=== PATIENT | male | born 1950 | race Caucasian/White ===

== ENCOUNTER → 2016-12-04 | Outpatient (CLI) | payer OTHER ==
[2016-12-04 06:43] LABS: Urine RBC None Seen /hpf (0 - 3)
[2016-12-04 07:01] LABS: Basophils # (auto) 0 uL; Basophils % (auto) 0.3 % (0.0-2.0); Eosinophils # (auto) 0.3 uL; Hematocrit 46.6 % (41.0-53.0); Hemoglobin 15.5 g/dL (13.5-17.5); Lymphocytes # (auto) 1.6 uL; Lymphocytes % (auto) 25.4 % (10.0-50.0); Mean Corpuscular Hemoglobin 29.1 pg (28.0-32.0); Mean Corpuscular Hgb Conc. 33.3 g/dL (32.0-36.0); Mean Corpuscular Volume 87.3 fL (80.0-100.0); Mean Platelet Volume 8.2 fL (7.4-10.4); Monocytes # (auto) 0.4 uL; Monocytes % (auto) 6.6 % (0.0-12.0); Neutrophils % (auto) 63.7 % (37.0-80.0); Platelet Count (auto) 221 10^3/uL (140-450); Red Cell Distribution Width 13.6 % (11.6-16.0); White Blood Cell 6.2 10^3/uL (4.4-10.8)
[2016-12-04 07:10] LABS: Urine Bilirubin Negative (Negative); Urine Blood Negative /uL (Negative); Urine Color Yellow (Yellow); Urine Glucose Normal (Normal); Urine Ketone Negative (Negative); Urine Nitrite Negative (Negative); Urine Urobilinogen Normal (Negative)
[2016-12-04 07:30] LABS: BUN/Creatinine Ratio 23.2; Bilirubin, Total 0.6 mg/dL (0.2-1.0); Calcium 8.9 mg/dL (8.5-10.1); Potassium 4.3 mmol/L (3.5-5.1); Total Protein 7.2 g/dL (6.4-8.2)
== END | disposition home or self-care (01) ==
LOC: LAB 06:36
PROVIDERS: ATTEND Family Medicine
DX: E11.9 Type 2 diabetes mellitus without complications (principal)
CPT/HCPCS: 36415; 80053; 80061; 81001; 82043; 82306; 83036; 85025

== ENCOUNTER → 2017-05-28 | Outpatient (CLI) | payer OTHER | END | disposition home or self-care (01) | LOC: LAB 06:35 | PROVIDERS: ATTEND Family Medicine | DX: E11.9 Type 2 diabetes mellitus without complications (principal) | CPT/HCPCS: 36415; 83036 ==

== ENCOUNTER → 2017-12-07 | Outpatient (CLI) | payer BC ==
[2017-12-07 08:49] LABS: Basophils # (auto) 0 uL; Basophils % (auto) 0.8 % (0.0-2.0); Eosinophils # (auto) 0.3 uL; Eosinophils % (auto) 4.8 % (0.0-7.0); Hematocrit 45.5 % (41.0-53.0); Hemoglobin 15.2 g/dL (13.5-17.5); Lymphocytes # (auto) 1.5 uL; Lymphocytes % (auto) 27.9 % (10.0-50.0); Mean Corpuscular Hemoglobin 29.1 pg (28.0-32.0); Mean Corpuscular Hgb Conc. 33.4 g/dL (32.0-36.0); Mean Corpuscular Volume 87.1 fL (80.0-100.0); Monocytes # (auto) 0.4 uL; Monocytes % (auto) 7.2 % (0.0-12.0); Neutrophils # (auto) 3.3 uL; Neutrophils % (auto) 59.3 % (37.0-80.0); Nucleated Red Blood Cells % 0.3 %; Platelet Count (auto) 181 10^3/uL (140-450); Red Blood Cells 5.22 10^6/uL (4.5-5.90); Red Cell Distribution Width 13.9 % (11.8-14.3); White Blood Cell 5.5 10^3/uL (4.4-10.8)
[2017-12-07 09:07] LABS: Urine Bacteria NONE SEEN /hpf (None Seen); Urine Blood Negative /uL (Negative); Urine Specific Gravity 1.024 (1.001-1.035); Urine WBC 1 /hpf (0 - 3)
[2017-12-07 09:37] LABS: BUN/Creatinine Ratio 18.1; Bilirubin, Total 0.7 mg/dL (0.2-1.0)
== END | disposition home or self-care (01) ==
LOC: LAB 08:10
PROVIDERS: ATTEND Family Medicine
DX: E11.8 Type 2 diabetes mellitus with unspecified complications (principal); E78.5 Hyperlipidemia, unspecified
CPT/HCPCS: 36415; 80053; 80061; 81001; 82043; 83036; 84153; 84154; 85025

== ENCOUNTER → 2018-05-16 | Day surgery (SDC) | payer BC, MEDICARE ==
[2018-05-14 09:54] LABS: Basophils # (auto) 0 uL; Basophils % (auto) 0.8 % (0.0-2.0); Eosinophils # (auto) 0.3 uL; Eosinophils % (auto) 4.7 % (0.0-7.0); Hematocrit 44.9 % (41.0-53.0); Hemoglobin 15.4 g/dL (13.5-17.5); Lymphocytes # (auto) 1.3 uL; Lymphocytes % (auto) 23.1 % (10.0-50.0); Mean Corpuscular Hemoglobin 29.8 pg (28.0-32.0); Mean Corpuscular Hgb Conc. 34.4 g/dL (32.0-36.0); Mean Corpuscular Volume 86.6 fL (80.0-100.0); Monocytes # (auto) 0.5 uL; Monocytes % (auto) 8.7 % (0.0-12.0); Neutrophils # (auto) 3.4 uL; Neutrophils % (auto) 62.7 % (37.0-80.0); Nucleated Red Blood Cells % 0.1 %; Platelet Count (auto) 186 10^3/uL (140-450); Red Blood Cells 5.19 10^6/uL (4.5-5.90); Red Cell Distribution Width 13.8 % (11.8-14.3); White Blood Cell 5.5 10^3/uL (4.4-10.8)
[2018-05-14 10:27] LABS: Urine Bacteria NONE SEEN /hpf (None Seen); Urine Blood Negative /uL (Negative); Urine WBC 1 /hpf (0 - 3)
[2018-05-14 10:34] LABS: Albumin 3.9 g/dL (3.4-5.0); BUN/Creatinine Ratio 16.4; Calcium 8.5 mg/dL (8.5-10.1); Potassium 4.1 mmol/L (3.5-5.1)
[2018-05-14 10:36] LABS: Bilirubin, Total 0.8 mg/dL (0.2-1.0); Total Protein 6.9 g/dL (6.4-8.2)
[2018-05-14 11:05] LABS: INR 1.02 (0.9-1.15); Prothrombin Time 10.9 sec (9.27-12.13)
[~2018-05-16] VITALS: Ht 170.2 cm; Wt 81.6 kg
[~2018-05-16] MED LIST: CIPROFLOXACIN 400MG/200ML 200 ML IV ONE; MIDAZOLAM HCL 1MG/1ML-2 ML VIAL ONE; PROPOFOL 10 MG/ML 20 ML IV ONE; fentaNYL CITRATE 100 MCG/2 ML VL ONE
[2018-05-16 08:20] VITALS: BP 110/70
== END | disposition home or self-care (01) ==
LOC: SUR 05:39
PROVIDERS: ATTEND Urology
DX: D29.1 Benign neoplasm of prostate (principal); R97.20 Elevated prostate specific antigen [PSA]; I34.1 Nonrheumatic mitral (valve) prolapse; E78.00 Pure hypercholesterolemia, unspecified; E11.9 Type 2 diabetes mellitus without complications; Z79.82 Long term (current) use of aspirin; Z87.891 Personal history of nicotine dependence; Z98.890 Other specified postprocedural states
CPT/HCPCS: 36415; 55706; 80053; 81001; 82962; 85025; 85610; 85730; 88305; 88342; J0744; J2250; J2704; J3010

== ENCOUNTER → 2018-09-05 | Outpatient (CLI) | payer BC, MEDICARE ==
[2018-09-05 07:26] LABS: Urine WBC None Seen /hpf (0 - 3)
[2018-09-05 07:38] LABS: Urine Bacteria NONE SEEN /hpf (None Seen); Urine Blood Negative /uL (Negative); Urine Specific Gravity 1.018 (1.001-1.035)
[2018-09-05 07:41] LABS: Basophils # (auto) 0.1 uL; Basophils % (auto) 0.7 % (0.0-2.0); Eosinophils # (auto) 0.2 uL; Hematocrit 45.4 % (41.0-53.0); Hemoglobin 15.6 g/dL (13.5-17.5); Lymphocytes # (auto) 1.4 uL; Lymphocytes % (auto) 19.5 % (10.0-50.0); Mean Corpuscular Hemoglobin 29.6 pg (28.0-32.0); Mean Corpuscular Hgb Conc. 34.3 g/dL (32.0-36.0); Mean Corpuscular Volume 86.4 fL (80.0-100.0); Monocytes # (auto) 0.5 uL; Monocytes % (auto) 6.1 % (0.0-12.0); Neutrophils # (auto) 5.2 uL; Neutrophils % (auto) 70.7 % (37.0-80.0); Nucleated Red Blood Cells % 0.1 %; Platelet Count (auto) 243 10^3/uL (140-450); Red Blood Cells 5.26 10^6/uL (4.5-5.90); Red Cell Distribution Width 13.8 % (11.8-14.3); White Blood Cell 7.4 10^3/uL (4.4-10.8)
[2018-09-05 08:57] LABS: Albumin 3.8 g/dL (3.4-5.0); Potassium 4.5 mmol/L (3.5-5.1)
[2018-09-05 09:02] LABS: BUN/Creatinine Ratio 19.5; Bilirubin, Total 0.5 mg/dL (0.2-1.0); Total Protein 7.1 g/dL (6.4-8.2)
[2018-09-05 10:02] LABS: Free T4 (Free Thyroxine) 1.17 ng/dL (0.89-1.76)
[2018-09-05 10:03] LABS: Folate (Folic Acid) > 24.00 ng/mL (5.38-24)
== END | disposition home or self-care (01) ==
LOC: LAB 07:05
PROVIDERS: ATTEND Internal Medicine
DX: E11.9 Type 2 diabetes mellitus without complications (principal)
CPT/HCPCS: 36415; 80053; 80061; 81001; 82043; 82607; 82746; 83036; 84439; 84443; 85025

== ENCOUNTER → 2018-10-04 | Outpatient (CLI) | payer BC, MEDICARE | END | disposition home or self-care (01) | LOC: LAB 13:52 | PROVIDERS: ATTEND Internal Medicine | DX: E11.9 Type 2 diabetes mellitus without complications (principal) | CPT/HCPCS: 82270 ==